=== PATIENT | female | born 1985 | race Caucasian/White ===

== ENCOUNTER 2018-05-24 13:46 | Emergency (ER) | payer MEDICAID ==
[~2018-05-24] VITALS: Ht 163.8 cm; Wt 113.6 kg
[2018-05-24 14:18] VITALS: BP 139/75; Ht 163.8 cm; Wt 113.6 kg
[2018-05-24] MEDS ORDERED: EFFEXOR XR150 MG PO (14:20)
== END 2018-05-24 15:00 | disposition left against medical advice (07) ==
LOC: D.ER 13:46
DX: R50.9 Fever, unspecified (principal)

== ENCOUNTER 2018-08-13 19:28 | Emergency (ER) | payer MEDICAID ==
[~2018-08-13] VITALS: Ht 163.8 cm; Wt 122.7 kg
[~2018-08-13 19:28] MED LIST: EFFEXOR XR150 MG PO
[2018-08-13 19:45] VITALS: Ht 163.8 cm; Wt 122.7 kg
[2018-08-13] MEDS ORDERED: TORADOL10 MG PO (20:16)
[2018-08-13 20:35] VITALS: BP 122/83
== END 2018-08-13 20:35 | disposition home or self-care (01) ==
LOC: D.ER 19:28
DX: K01.1 Impacted teeth (principal); F17.200 Nicotine dependence, unspecified, uncomplicated